=== PATIENT | female | born 1965 | race Caucasian/White ===

== ENCOUNTER 2016-09-15 17:37 | Emergency (ER) | payer MEDICAID ==
[2016-09-15] MEDS ORDERED: KETOROLAC 60 MG/2 ML VIAL IM ONE (19:58)
== END 2016-09-15 20:41 | disposition home or self-care (01) ==
LOC: ER 17:37
DX: R07.89 Other chest pain (principal); J44.9 Chronic obstructive pulmonary disease, unspecified; I50.9 Heart failure, unspecified; E66.9 Obesity, unspecified; F17.200 Nicotine dependence, unspecified, uncomplicated
CPT/HCPCS: 71020; 93005; 96372

== ENCOUNTER 2016-09-17 03:14 | Emergency (ER) | payer MEDICAID ==
[2016-09-17] MEDS ORDERED: ONDANSETRON ODT 4 MG TAB ONE (03:46)
== END 2016-09-17 04:53 | disposition home or self-care (01) ==
LOC: ER 03:14
DX: R07.2 Precordial pain (principal); R07.89 Other chest pain
CPT/HCPCS: 36415; 71020; 80053; 82553; 84484; 85025; 85610; 85730; 93005